=== PATIENT | female | born 1985 ===

== ENCOUNTER → 2018-08-25 | Outpatient (CLI) | payer OTHER ==
[~2018-08-25] MED LIST: AMITRIPTYLINE H25 M1 PO; AMOXICILLIN 8751 TAB PO; CELEXA 20MG20 MG/TAB PO; DOXYCYCLINE 10100 MG PO; FLEXERIL 1010 MG/TAB PO; GENTAMICIN OPTHA3 GM OS; LEXAPRO 10MG10 MG PO; LORTAB 5/500 501 TAB PO; NAPROSYN500 MG PO; NEURONTIN300 MG/CAP PO; NO HOME MEDICATIONS; NORCO 325 MG-51 TAB PO; ORAXYL20 MG; XANAX 0.5MG0.5 MG PO
== END ==
LOC: MHCPAIN 15:20
DX: G89.29 Other chronic pain (principal); M54.12 Radiculopathy, cervical region; M47.812 Spondylosis without myelopathy or radiculopathy, cervical region
CPT/HCPCS: G0463

== ENCOUNTER → 2018-09-03 | Outpatient (CLI) | payer OTHER | LOC: MHCPAIN 10:17 | DX: M47.812 Spondylosis without myelopathy or radiculopathy, cervical region (principal); M54.12 Radiculopathy, cervical region; M50.90 Cervical disc disorder, unspecified, unspecified cervical region | CPT/HCPCS: J1100; Q9967 ==

== ENCOUNTER → 2018-09-08 | Outpatient (CLI) | payer OTHER | LOC: MHCPAIN 13:59 | DX: G89.29 Other chronic pain (principal); M54.12 Radiculopathy, cervical region; M54.81 Occipital neuralgia; R51 Headache; M47.812 Spondylosis without myelopathy or radiculopathy, cervical region | CPT/HCPCS: G0463 ==

== ENCOUNTER → 2018-10-06 | Outpatient (CLI) | payer OTHER | LOC: MHCPAIN 09:07 | DX: G89.29 Other chronic pain (principal); M54.12 Radiculopathy, cervical region; M54.81 Occipital neuralgia; R51 Headache; M47.812 Spondylosis without myelopathy or radiculopathy, cervical region | CPT/HCPCS: G0463 ==

== ENCOUNTER → 2019-04-20 | Outpatient (CLI) | payer OTHER | LOC: MHCPAIN 14:22 | DX: G89.29 Other chronic pain (principal); M47.812 Spondylosis without myelopathy or radiculopathy, cervical region; R51 Headache | CPT/HCPCS: G0463 ==

== ENCOUNTER 2020-10-24 17:33 | Emergency (ER) | payer SELFPAY ==
[~2020-10-24] VITALS: Ht 160 cm; Wt 57.7 kg
[2020-10-24] MEDS ORDERED: PREDNISONE20 MG PO (18:46)
[2020-10-24 18:57] VITALS: BP 124/67; PULSE 73; TEMP 97.6
== END 2020-10-24 18:58 | disposition home or self-care (01) ==
LOC: COL.ER 17:33
DX: M77.8 Other enthesopathies, not elsewhere classified (principal)